=== PATIENT | male | born 1995 | race Caucasian/White ===

== ENCOUNTER 2023-05-01 19:47 | Emergency (ER) | payer OTHER ==
[~2023-05-01] VITALS: Ht 167.6 cm; Wt 120.2 kg
[2023-05-01 21:10] LABS: APPEARANCE,URINE CLEAR (CLEAR); BILIRUBIN,URINE NEGATIVE (NEGATIVE); BLOOD, URINE NEGATIVE Ery/uL (NEGATIVE); COLOR,URINE YELLOW (YELLOW); KETONES,URINE NEGATIVE (NEGATIVE); LEUKOCYTE ESTERASE ,URINE NEGATIVE (NEGATIVE); NITRITE, URINE NEGATIVE (NEGATIVE); PROTEIN,URINE NEGATIVE (NEGATIVE); UGLUCOSE NEGATIVE (NEGATIVE); UROBILINOGEN,URINE 0.2 EU/dL (0.2)
[2023-05-01] MEDS ORDERED: IBUP-1955 PO (21:18)
[2023-05-01] MEDS ORDERED: KETOROLAC TROMETHAMINE INJ 30 MG/ML VIAL ONE (21:24)
[2023-05-01 21:30] VITALS: BP 134/82; TEMP 98.5; O2SAT 98
[2023-05-01] MEDS ORDERED: KETOROLAC TROMETHAMINE INJ 60 MG/2 ML VIAL IM ONE (21:30)
== END 2023-05-01 21:33 | disposition home or self-care (01) ==
LOC: ER 20:10
DX: N50.812 Left testicular pain (principal); F32.A Depression, unspecified; F41.9 Anxiety disorder, unspecified; Z79.899 Other long term (current) drug therapy; Z88.1 Allergy status to other antibiotic agents
CPT/HCPCS: 99285; 96372; 76870; 81003; J1885